=== PATIENT | male | born 1980 | race Caucasian/White ===

== ENCOUNTER 2018-03-06 22:09 | Emergency (ER) | payer SELFPAY ==
[~2018-03-06] VITALS: Ht 180.3 cm; Wt 81.8 kg
[~2018-03-06 22:09] MED LIST: FLONASE NASAL S16 GM NS; NEOMYCIN/POLY B10 M1 OT; NORCO 325 MG-51 TAB PO
[2018-03-06 22:14] VITALS: TEMP 97.5
[2018-03-06 23:08] LABS: BASO # 0.1 (0.0-0.2); BASO % 0.3 % (0.0-2.0); EOS # 0.1 (0.0-0.7); EOS % 0.9 % (0-4.0); GRAN # 12.2 (1.4-6.5); GRAN % 77.9 % (42.2-75.2); HEMATOCRIT 49.2 % (42.0-52.0); HEMOGLOBIN 16.7 g/dl (13.5-18.0); LYMPH % 12.4 % (20.0-51.0); MEAN CELL VOLUME 93 fl (80.0-100.0); MEAN CORPUSCULAR HEMOGLOBIN 32 pg (27.0-31.0); MEAN CORPUSCULAR HGB CONC 34 g/dl (33.0-37.0); MEAN PLATELET VOLUME 8.8 fl (7.4-10.4); MONO # 1.3 (0.1-0.6); MONO % 8.1 % (1.7-9.3); PLATELET COUNT 297 K/mm3 (130-400); RED BLOOD COUNT 5.29 M/mm3 (4.20-5.60); REDCELL DISTRIBUTION WIDTH-CV 12.2 % (11.5-14.5)
[2018-03-06 23:21] LABS: ALANINE AMINOTRANSFERASE 35 U/L (21-72); ALBUMIN 4.1 gm/dL (3.5-5.0); ALKALINE PHOSPHATASE 71 U/L (50-136); ANION GAP 9 mmol/L (7-16); AST,SGOT 27 U/L (15-37); BILIRUBIN,TOTAL 0.2 mg/dL (0.0-1.0); BLOOD UREA NITROGEN 19 mg/dL (9-20); CALCIUM 8.8 mg/dL (8.4-10.2); CARBON DIOXIDE 28 mmol/L (22-30); CHLORIDE 100 mmol/L (98-107); CREATININE, serum 0.77 mg/dL (0.66-1.25); GLUCOSE 96 mg/dL (74-106); LIPASE 113 U/L (23-300); POTASSIUM 3.9 mmol/L (3.4-5.0); SODIUM 136 mmol/L (137-145); TOTAL PROTEIN 7.3 gm/dL (6.4-8.2)
[2018-03-06 23:25] LABS: C-REACTIVE PROTEIN < 0.5 mg/dL (0.0-0.9)
[2018-03-07 00:04] LABS: COLLECTION METHOD CLEAN CATCH
[2018-03-07 00:11] LABS: MUCOUS Present /lpf; PH 5 (5-8); SQUAMOUS EPITHELIAL 0-2 /hpf; URINE APPEARANCE Clear; URINE BACTERIA None Seen /hpf; URINE BILIRUBIN Negative (NEGATIVE); URINE BLOOD Negative (NEGATIVE); URINE COLOR Yellow; URINE GLUCOSE Negative (NEGATIVE); URINE KETONE Negative (NEGATIVE); URINE LEUKOCYTE ESTERASE Trace (NEGATIVE); URINE NITRATE Negative (NEGATIVE); URINE PROTEIN(semi-quant) Negative (NEGATIVE); URINE RBC 0-2 /hpf; URINE UROBILINOGEN Negative (NEGATIVE)
[2018-03-07] MEDS ORDERED: NORCO 325 MG-51 TAB PO (00:49)
[2018-03-07] MEDS ORDERED: ZOFRAN ODT4 MG PO (01:27)
[2018-03-07 03:56] VITALS: BP 134/72; PULSE 80
== END 2018-03-07 04:00 | disposition home or self-care (01) ==
LOC: COL.ER 22:09
PROVIDERS: Emergency Medicine
DX: S62.306A Unspecified fracture of fifth metacarpal bone, right hand, initial encounter for closed fracture (principal); R10.9 Unspecified abdominal pain; F17.210 Nicotine dependence, cigarettes, uncomplicated; Z87.442 Personal history of urinary calculi; W22.8XXA Striking against or struck by other objects, initial encounter
CPT/HCPCS: J1885; J2405; J2765; J3010; J7030; Q4021; Q9967

== ENCOUNTER 2019-11-02 04:06 | Emergency (ER) | payer SELFPAY ==
[~2019-11-02] VITALS: Ht 182.9 cm; Wt 87.3 kg
[~2019-11-02 04:06] MED LIST changes: +ZOFRAN ODT4 MG PO
[2019-11-02 04:22] VITALS: BP 144/76; TEMP 97.9
[2019-11-02 05:08] LABS: COLLECTION METHOD CLEAN CATCH
[2019-11-02 05:23] LABS: MUCOUS Present /lpf; PH 5 (5-8); SQUAMOUS EPITHELIAL None Seen /hpf; URINE APPEARANCE Clear; URINE BACTERIA None Seen /hpf; URINE BILIRUBIN Negative (NEGATIVE); URINE BLOOD Negative (NEGATIVE); URINE COLOR Yellow; URINE GLUCOSE Negative (NEGATIVE); URINE KETONE Negative (NEGATIVE); URINE LEUKOCYTE ESTERASE Negative (NEGATIVE); URINE NITRATE Negative (NEGATIVE); URINE PROTEIN(semi-quant) Negative (NEGATIVE); URINE RBC 0-2 /hpf; URINE UROBILINOGEN Negative (NEGATIVE)
[2019-11-02 05:28] LABS: TRICYCLIC ANTIDEPRESS URINE NEGATIVE
[2019-11-02 05:56] LABS: BASO % 0.5 % (0.0-2.0); EOS # 0.3 (0.0-0.7); EOS % 3.3 % (0-4.0); GRAN # 4.1 (1.4-6.5); GRAN % 45.7 % (42.2-75.2); HEMATOCRIT 41.5 % (42.0-52.0); HEMOGLOBIN 14.1 g/dl (13.5-18.0); LYMPH # 3.7 (1.2-3.4); LYMPH % 42.1 % (20.0-51.0); MEAN CELL VOLUME 92 fl (80.0-100.0); MEAN CORPUSCULAR HEMOGLOBIN 31 pg (27.0-31.0); MEAN CORPUSCULAR HGB CONC 34 g/dl (33.0-37.0); MEAN PLATELET VOLUME 8.7 fl (7.4-10.4); MONO # 0.7 (0.1-0.6); MONO % 8.2 % (1.7-9.3); PLATELET COUNT 249 K/mm3 (130-400); RED BLOOD COUNT 4.51 M/mm3 (4.20-5.60); REDCELL DISTRIBUTION WIDTH-CV 11.9 % (11.5-14.5)
[2019-11-02 06:13] LABS: ALBUMIN 3.5 gm/dL (3.5-5.0); BILIRUBIN,TOTAL 0.4 mg/dL (0.0-1.0); CALCIUM 8.6 mg/dL (8.4-10.2); CREATININE, serum 0.71 (0.66-1.25); TOTAL PROTEIN 6.4 gm/dL (6.4-8.2)
[2019-11-02 07:02] VITALS: PULSE 77
== END 2019-11-02 07:03 | disposition home or self-care (01) ==
LOC: COL.ER 04:06
PROVIDERS: Emergency Medicine
DX: R10.84 Generalized abdominal pain (principal); F15.10 Other stimulant abuse, uncomplicated; R74.8 Abnormal levels of other serum enzymes; F17.210 Nicotine dependence, cigarettes, uncomplicated; Z87.442 Personal history of urinary calculi